=== PATIENT | female | born 1950 | race Caucasian/White ===

== ENCOUNTER → 2016-11-12 | Outpatient (CLI) | payer MEDICARE, BC ==
[~2016-11-12] MED LIST: ADVAIR 100/28 DISKU1 IH; ALBUTEROL SULFAT3 M3 IH; ALBUTEROL0.83 MG/ML IH; CHOLESTEROL FIG1 CAP PO; DOXYCYCLINE 10100 MG PO; NIASPAN500 MG PO; NICODERM C14 MG/PATC TOP; PROVENTIL0.09 MG/A1 IH; SIMVASTATIN40 MG PO; SPIRIVA18 MCG IH; STOMACH MED; THEO-DUR 200200 MG PO; THEO-DUR 2200 MG/TAB PO; UNABLE; VESICARE 5MG5 MG; ZITHROMAX500 M2 PO; [UNRECOGNIZED DRUG - REMARK]; [UNRECOGNIZED DRUG - REMARK]
== END ==
LOC: COL.RAD 15:07
DX: R06.02 Shortness of breath (principal); R05 Cough; R42 Dizziness and giddiness; R07.89 Other chest pain; I10 Essential (primary) hypertension; C34.32 Malignant neoplasm of lower lobe, left bronchus or lung; Z90.2 Acquired absence of lung [part of]; C79.51 Secondary malignant neoplasm of bone; J43.8 Other emphysema; J47.9 Bronchiectasis, uncomplicated; I74.09 Other arterial embolism and thrombosis of abdominal aorta; I71.2 Thoracic aortic aneurysm, without rupture
CPT/HCPCS: Q9967